=== PATIENT | male | born 2000 | race Caucasian/White ===

== ENCOUNTER 2024-08-21 19:41 | Emergency (ER) | payer OTHER ==
[~2024-08-21] VITALS: Ht 188 cm; Wt 100.0 kg
[2024-08-21 19:47] VITALS: TEMP 97.7
[2024-08-21 20:42] LABS: HEMATOCRIT 45.5 % (42.0-52.0); MEAN CORPUSCULAR HEMOGLOBIN 29.8 pg (27.0-33.0); MEAN CORPUSCULAR HGB CONC 35.2 g/dl (32.0-36.5); MEAN CORPUSCULAR VOLUME 84.7 fl (80.0-96.0); PLATELET COUNT, AUTOMATED 363 10^3/uL (150-450); RED BLOOD COUNT 5.37 10^6/uL (4.30-6.10); WHITE BLOOD COUNT 9.4 10^3/uL (4.0-10.0)
[2024-08-21 20:59] LABS: AMPHETAMINES LEVEL URINE NEGATIVE (NEGATIVE); BARBITURATES URINE NEGATIVE (NEGATIVE); BENZODIAZEPINES URINE NEGATIVE (NEGATIVE); CANNABINOIDS URINE NEGATIVE (NEGATIVE); COCAINE METABOLITE URINE NEGATIVE (NEGATIVE); METHADONE URINE NEGATIVE (NEGATIVE); OPIATES URINE NEGATIVE (NEGATIVE); PHENCYCLIDINE URINE NEGATIVE (NEGATIVE)
[2024-08-21 21:13] LABS: ETHYL ALCOHOL (ETHANOL) 0.051 % (0.000-0.010)
[2024-08-21 21:15] LABS: SALICYLATE LEVEL < 3.0 MG/DL (<30)
[2024-08-21 21:17] LABS: THYROID STIMULATING HORMONE 1.297 uIU/ML (0.55-4.78)
[2024-08-21 21:19] LABS: ALBUMIN 4.9 G/DL (3.2-5.2); ALKALINE PHOSPHATASE 85 U/L (40-129); ALT/SGPT 32 U/L (7.0-40); AST/SGOT 25 U/L (<34); BILIRUBIN,TOTAL 0.5 MG/DL (0.3-1.2); BLOOD UREA NITROGEN 15 MG/DL (9-23); CALCIUM LEVEL 9.4 MG/DL (8.5-10.1); CARBON DIOXIDE LEVEL 29 MMOL/L (20-31); CHLORIDE LEVEL 104 MMOL/L (98-107); CREATININE FOR GFR 0.97 MG/DL (0.70-1.30); GLOMERULAR FILTRATION RATE > 60.0 (>60); GLUCOSE, FASTING 96 MG/DL (60-100); POTASSIUM SERUM 4.5 MMOL/L (3.5-5.1); SODIUM LEVEL 144 MMOL/L (136-145); TOTAL PROTEIN 8.5 G/DL (5.7-8.2)
[2024-08-21 21:34] LABS: BILIRUBIN,DIRECT 0.2 MG/DL (<0.4)
[2024-08-21 22:18] VITALS: BP 129/83; O2SAT 99
== END 2024-08-21 23:28 | disposition home or self-care (01) ==
LOC: M ED 19:41
DX: Z04.6 Encounter for general psychiatric examination, requested by authority (principal); F17.290 Nicotine dependence, other tobacco product, uncomplicated